=== PATIENT | male | born 2000 | race Caucasian/White ===

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

== ENCOUNTER 2021-04-27 10:18 | Emergency (ER) | payer BC, SELFPAY ==
[2021-04-27 10:41] VITALS: BP 151/81; PULSE 106; RESP 20; TEMP 37.2; O2SAT 100
--- NOTE | 2021-04-27 10:49 | ED.GENADULT ---
HPI - General Adult General Chief complaint: Urogenital-Male Stated complaint: treatment for gonarrhea Source: patient Mode of arrival: ambulatory History of Present Illness HPI narrative: Cat is a 21M with a PMH of gonorrhea and chlamydia that presented to the ED requesting treatment for gonorrhea. He tested positive on 10/25/20 and reports he just slept with the same partner that did not get treatment. He now has purulent discharge and dysuria for 3 days. No fevers, chills, N/V, CP or SOB. He refuses testing at this time. Related Data Allergies Allergy/AdvReac Type Severity Reaction Status Date / Time Penicillins Allergy Unknown Verified 10/25/20 13:06 Review of Systems Constitutional: Constitutional: Reports no additional constitutional complaints Eyes: Eyes: Reports no additional eye complaints ENT: Reports system reviewed and no additional complaints, except as documented Cardiovascular: Cardiovascular: Reports no additional cardiovascular complaints Respiratory: Respiratory: Reports no additional respiratory complaints Gastrointestinal: Gastrointestinal: Reports no additional gastrointestinal complaints Genitourinary: Genitourinary: Reports no additional male genitourinary complaints Musculoskeletal: Musculoskeletal: Reports no additional musculoskeletal complaints Integumentary/Breasts: Skin/Breast: Reports system reviewed and no additional complaints, except as docu Neurologic: Reports system reviewed and no additional complaints, except as documented Psychiatric: Psychiatric: Reports no additional psychiatric complaints Endocrine: Endocrine: Reports no additional endocrine complaints Hematologic/Lymphatic: Hematologic/Lymphatic: Reports no additional hematologic/lymphatic complaints Allergic/Immunologic: Allergic/Immunologic: Reports no additional allergic/immunologic complaints [facility] Social History Social History Gender identity (if verbalized by the patient): Male Exam Const: General: no acute distress and alert Orientation/consciousness: patient oriented x3 Limitations: No altered mental status HENMT: Head: normal to inspection Mouth: Yes Normal oral and palatal mucosa present Eyes: Conjunctivae: conjunctivae normal Pupils: Equal, round and reactive pupils present Neck: Neck: normal visual inspection Chest: Chest palpation & inspection: normal inspection of the chest Resp: Effort & Inspection: normal respiratory effort, not labored and not tachypneic Cardio: Rate: regular rate Skin: General skin exam: normal color Rashes: no rashes Neuro: General: patient oriented x3 and moves all extremities Extrem: General: normal to inspection Psych: Mental Status: mental status grossly normal Course Course Emergency Course: Declined testing but requested treatment for presumed infection. Given history and previous infection will treat for gonorrhea, chlamydia and trich. Vital Signs Vital signs: Vital Signs Temperature 98.9 F 04/27/21 10:41 Pulse Rate 106 H 04/27/21 10:41 Respiratory Rate 20 04/27/21 10:41 Blood Pressure 151/81 H 04/27/21 10:41 Pulse Oximetry 100 04/27/21 10:41 Temperature 98.9 F 04/27/21 10:41 Pulse Rate 106 H 04/27/21 10:41 Respiratory Rate 20 04/27/21 10:41 Blood Pressure 151/81 H 04/27/21 10:41 Pulse Oximetry 100 04/27/21 10:41 Medical Decision Making Vital Signs Vital Signs: Vital Signs Temperature 98.9 F 04/27/21 10:41 Pulse Rate 106 H 04/27/21 10:41 Respiratory Rate 20 04/27/21 10:41 Blood Pressure 151/81 H 04/27/21 10:41 Pulse Oximetry 100 04/27/21 10:41 Temperature 98.9 F 04/27/21 10:41 Pulse Rate 106 H 04/27/21 10:41 Respiratory Rate 20 04/27/21 10:41 Blood Pressure 151/81 H 04/27/21 10:41 Pulse Oximetry 100 04/27/21 10:41 Discharge Plan Discharge Clinical Impression: STI (sexually transmitted infection) Cristobal
[2021-04-27] MEDS: DOXYCYCLINE HYCLATE 100 MG TABLET PO (11:04)
[2021-04-27] MEDS: metroNIDAZOLE 250 MG TABLET 500 MG PO (11:04)
[2021-04-27] MEDS: ONDANSETRON HCL ODT 4 MG TABLET PO (11:05)
[2021-04-27] MEDS: LIDOCAINE HCL 1% LOCAL INJ 20 ML VIAL (11:05)
[2021-04-27 11:17] VITALS: PULSE 98; RESP 20; TEMP 37; O2SAT 99
== END 2021-04-27 11:19 | disposition home or self-care (01) ==
PROVIDERS: Emergency Provider Family Medicine
DX: A64 Unspecified sexually transmitted disease (principal)
CPT/HCPCS: 96372; 99283; A9270; J0696

== ENCOUNTER 2021-06-05 14:51 | Outpatient (CLI) | payer BC, SELFPAY ==
[2021-06-05 15:08] LABS: Hematocrit 42.3 % (40.0-54.0); Hemoglobin 13.8 g/dL (14.0-18.0); Mean Corpuscular HGB Conc 32.6 g/dL (32.0-36.0); Mean Corpuscular Hemoglobin 29.2 pg (27.0-31.0); Mean Corpuscular Volume 89.4 fL (78.0-102.0); Mean Platelet Volume 10.4 fl (8.7-11.0); Platelet Count Result 212 K/mm3 (150-420); Red Blood Count 4.73 M/mm3 (4.70-6.10); Red Cell Distribution Width 12.3 % (11.6-14.4); White Blood Count 8.6 K/mm3 (4.8-10.8)
[2021-06-05 15:43] LABS: Add Urine Microscopic? YES; Appearance Urine Clear (Clear); Bilirubin Urine Negative (Negative); Blood Urine Negative (Negative); Color Urine Yellow (Yellow); Glucose Urine UA Negative (Negative); Ketones Urine Negative (Negative); Leukocyte Esterase Ur Negative (Negative); Nitrate Urine Negative (Negative); Protein Urine Trace (Negative); Specific Grav Ur 1.015 (1.010-1.020); Urobilinogen Urine 0.2 mg/dL (0.2-1.0); pH Urine 7.5 (5.0-8.0)
[2021-06-05 15:48] LABS: Bacteria Urine Trace /hpf; RBC Urine 0-2 /hpf (0-2); Squamous Epithelial Cell Urine Rare /hpf (Few); WBC Urine 0-3 /hpf (0-3)
[2021-06-05 15:52] LABS: Alanine Aminotransferase 23 U/L (16-63); Albumin Level 4.2 g/dL (3.4-5.0); Alkaline Phosphatase 92 U/L (46-116); Anion Gap 10 mmol/L (8-16); Aspartate Amino Transferase 14 U/L (15-37); Bilirubin,Total 0.4 mg/dL (0.00-1.00); Blood Urea Nitrogen 14 mg/dL (7-18); Calcium 9.2 mg/dL (8.5-10.1); Carbon Dioxide 28 mmol/L (21-32); Chloride 103 mmol/L (98-108); Estimated Glomerular Filt Rate > 60; Glucose 79 mg/dL (70-99); Osmolality Calculated 291 mOsm/kg (285-295); Potassium 4.2 mmol/L (3.5-5.1); Sodium 141 mmol/L (136-145); Total Protein 7.7 g/dL (6.4-8.2)
== END 2021-06-05 14:52 | disposition home or self-care (01) ==
LOC: CHSLAB 14:54
PROVIDERS: PCP Family Medicine; Visit Provider Family Medicine
DX: Z00.00 Encounter for general adult medical examination without abnormal findings (principal)
CPT/HCPCS: 36415; 80053; 81001; 85027; 87491; 87591

== ENCOUNTER 2022-01-07 14:13 | Emergency (ER) | payer BC, SELFPAY ==
[2022-01-07] VITALS (8 sets, daily range): BP systolic 116–131; BP diastolic 59–76; PULSE 61–104; RESP 14–16; TEMP 36.2–36.8; O2SAT 98–100
--- NOTE | ~2022-01-07 | XR_ITS ---
EXAMINATION: XR chest 1V portable DATE: 01/07/2022 15:07 INDICATION: Shortness of breath TECHNIQUE: frontal view of the chest was obtained. COMPARISON: Chest radiograph dated 02/12/2017 FINDINGS: The lungs remain clear with no focal airspace opacities, pulmonary edema, pleural effusion or pneumot horax. The cardiomediastinal silhouette is normal. Visualized bones and soft tissues are unremarkable . IMPRESSION: 1. No acute cardiopulmonary disease. Reviewed, dictated and finalized at location B.
--- NOTE | 2022-01-07 14:48 | ECG_ITS ---
Measurements Intervals [place] Rate: 97 P: 60 LA: 139 QRS: 60 QRSD: 87 T: 3 QT: 348 QTc: 444 Interpretive Statements SINUS RHYTHM EARLY PRECORDIAL R/S TRANSITION BASELINE ARTIFACT- I, II, AVR, AVF, V6 BORDERLINE ECG NO PREVIOUS ECG AVAILABLE FOR COMPARISON Electronically Signed On 01-08-2022 6:44:47 CDT by Moustapha Ortiz D.O.
[2022-01-07 15:14] LABS: Base Excess ABG 0.7 mmol/L (0-2); HCO3 ABG 26.2 mmol/L (23-29); Oxygen Content ABG 16.9 %vol (16.0-22.0); Oxygen Saturation ABG 96.4 % (95-97); Oxyhemoglobin 95.1 % (94-100); PCO2 ABG 45.8 mmHg (35-45); PO2 ABG 92.6 mmHg (80-90); Total Hemoglobin 12.6 g/dL (12.0-18.0); pH ABG 7.38 (7.35-7.45)
[2022-01-07] MEDS: IPRATROPIUM 0.5 MG/ALBUTEROL SULFATE 2.5 MG AMPUL.NEB 3 ML INHALATION (15:14)
[2022-01-07 15:15] LABS: Device ROOM AIR; Modified Allen's Test Pass; Site Drawn RIGHT RADIAL
[2022-01-07 15:16] LABS: Basophils Absolute Auto 0.03 K/mm3 (0.00-0.10); Basophils Percent Auto 0.4 % (0.0-1.0); Eosinophils Absolute Auto 0.05 K/mm3 (0.02-0.50); Eosinophils Percent Auto 0.6 % (1.0-6.0); Hematocrit 35.5 % (40.0-54.0); Hemoglobin 11.8 g/dL (14.0-18.0); Immature Granulocyte Absolute 0.02 K/mm3 (0.00-0.00); Immature Granulocyte Percent A 0.2 % (0.0-0.0); Lymphocytes Absolute Auto 1.91 K/mm3 (1.10-4.50); Lymphocytes Percent Auto 23.4 % (18.0-42.0); Mean Corpuscular HGB Conc 33.2 g/dL (32.0-36.0); Mean Corpuscular Hemoglobin 28.8 pg (27.0-31.0); Mean Corpuscular Volume 86.6 fL (78.0-102.0); Mean Platelet Volume 10.9 fl (8.7-11.0); Monocytes Absolute Auto 0.88 K/mm3 (0.10-0.90); Monocytes Percent Auto 10.8 % (2.0-11.0); Neutrophils Absolute Auto 5.3 K/mm3 (1.7-7.2); Neutrophils Percent Auto 64.6 % (50.0-70.0); Platelet Count Result 185 K/mm3 (150-420); Red Cell Distribution Width 11.8 % (11.6-14.4); White Blood Count 8.2 K/mm3 (4.8-10.8)
[2022-01-07 15:31] LABS: Alanine Aminotransferase 27 U/L (16-63); Albumin Level 3.6 g/dL (3.4-5.0); Alkaline Phosphatase 87 U/L (46-116); Anion Gap 6 mmol/L (8-16); Aspartate Amino Transferase 26 U/L (15-37); Bilirubin,Total 0.3 mg/dL (0.00-1.00); Blood Urea Nitrogen 17 mg/dL (7-18); Calcium 8.8 mg/dL (8.5-10.1); Carbon Dioxide 29 mmol/L (21-32); Chloride 106 mmol/L (98-108); Estimated CRCL calculation 110 ml/min; Estimated Glomerular Filt Rate > 60; Glucose 147 mg/dL (70-99); Osmolality Calculated 296 mOsm/kg (285-295); Potassium 3.6 mmol/L (3.5-5.1); Sodium 141 mmol/L (136-145)
[2022-01-07 15:37] LABS: Troponin I < 4.0 ng/L (0.00-60.4)
[2022-01-07] MEDS: ASPIRIN 81 MG CHEWABLE TABLET 324 MG PO (15:37)
[2022-01-07] MEDS: ACETAMINOPHEN 325 MG TABLET 650 MG PO (15:37)
[2022-01-07] MEDS: methylPREDNISolone SOD SUCC 125 MG VIAL IV PUSH (15:41)
[2022-01-07] MEDS: ONDANSETRON INJ 4 MG/2 ML VIAL IV PUSH (15:41)
--- NOTE | 2022-01-07 16:50 | ED.CHESTPAIN ---
HPI - Chest Pain General Chief Complaint: Chest Pain Stated Complaint: LIGHT HEADED /HEAVY CHEST/hyperventilating Time Seen by Provider: 01/07/22 14:16 Source: patient and RN notes reviewed Mode of arrival: ambulatory Limitations: no limitations History of Present Illness complaint: chest heaviness Onset (ago): hour(s) (2) Timing of current episode: constant Prior episodes: No Onset: during exertion Pain location: substernal Pain radiation: none Severity: mild Pain scale (0-10): 2 Quality: heaviness Relieving factors: nothing Exacerbating factors: nothing Treatment prior to arrival: none Risk Factors Coronary artery disease risk factors: smoking history Related Data Allergies Allergy/AdvReac Type Severity Reaction Status Date / Time Penicillins Allergy Unknown Verified 01/07/22 14:34 Review of Systems Review of Systems: All systems reviewed & are unremarkable except as noted in HPI and below Constitutional: Constitutional: Reports no additional constitutional complaints Eyes: Eyes: Reports no additional eye complaints ENT: Reports system reviewed and no additional complaints, except as documented Cardiovascular: Cardiovascular: Reports no additional cardiovascular complaints Respiratory: Respiratory: Reports no additional respiratory complaints and Reports wheezing Gastrointestinal: Gastrointestinal: Reports no additional gastrointestinal complaints Musculoskeletal: Musculoskeletal: Reports no additional musculoskeletal complaints Integumentary/Breasts: Skin/Breast: Reports system reviewed and no additional complaints, except as docu Neurologic: Reports system reviewed and no additional complaints, except as documented Psychiatric: Psychiatric: Reports no additional psychiatric complaints Endocrine: Endocrine: Reports no additional endocrine complaints Hematologic/Lymphatic: Hematologic/Lymphatic: Reports no additional hematologic/lymphatic complaints Allergic/Immunologic: Allergic/Immunologic: Reports no additional allergic/immunologic complaints PMFSH Past Medical History Medical History No active medical problems Wheezing Surgical History Surgical History No history of previous surgery Social History Social History Smoking packs per day: 1 Smoking cigarettes per day: 20.0 Years smoked: 5 Smoking pack-years: 5.00 Smoking status: Current every day smoker Tobacco type: cigarettes Gender identity (if verbalized by the patient): Male Exam Const: General: healthy appearing, no acute distress and well nourished Nutritional Appearance: well nourished Orientation/consciousness: patient oriented x3 Limitations: no limitations HENMT: Head: normal to inspection Ears: external ears normal, TM's normal bilaterally and EAC's normal Face/Nose/Sinus: Normal external nose present, Normal nares present, normal facial exam and sinuses nontender Face and sinus: normal facial exam and sinuses nontender Mouth: Yes Normal oral and palatal mucosa present and Yes moist mucous membranes Teeth and gingiva: dentition normal Throat: posterior oropharynx normal Eyes: Conjunctivae: conjunctivae normal Pupils: Equal, round and reactive pupils present EOM: EOMs intact bilaterally Neck: Neck: normal visual inspection, no lymphadenopathy and no meningeal signs Chest: Chest palpation & inspection: normal inspection of the chest Resp: Effort & Inspection: normal respiratory effort Auscultation: rhonchi and wheezes Cardio: Rate: regular rate Rhythm: regular rhythm GI: GI Palp: Yes Soft to palpation and No Tenderness to palpation present (GI) Auscultation: normal bowel sounds : General: Yes bladder normal to palpation and Yes no CVA tenderness Back/Spine/Pelvis: Back: no CVA tenderness Skin: General skin exam: normal color
== END 2022-01-07 17:01 | disposition home or self-care (01) ==
PROVIDERS: Emergency Provider Emergency Medicine; PCP Family Medicine
DX: M94.0 Chondrocostal junction syndrome [Tietze] (principal); J44.9 Chronic obstructive pulmonary disease, unspecified
CPT/HCPCS: 36415; 36600; 71045; 80053; 82805; 84484; 85025; 93005; 94640; 96374; 96375; 99284; A9270; J2405; J2930

== ENCOUNTER 2022-10-20 12:18 | Emergency (ER) | payer BC, SELFPAY ==
[2022-10-20 12:18] VITALS: BP 127/74; PULSE 82; RESP 16; TEMP 36.4; O2SAT 98
--- NOTE | 2022-10-20 12:30 | ED.GENADULT ---
HPI - General Adult General Chief complaint: Urogenital-Male Stated complaint: STD check Time Seen by Provider: 10/20/22 12:30 Source: patient Mode of arrival: ambulatory Limitations: no limitations History of Present Illness HPI narrative: Patient was sexually transmitted diseases check for as his girlfriend that he had sex with 2 weeks ago ledge likely had gonorrhea. He has had a history of gonorrhea in the distant past but has no symptoms whatsoever now. He is eating drinking stooling and voiding fine no nausea vomiting diarrhea rash or itching lumps or bumps or swelling or discharge or pain anywhere dizziness or lightheadedness cough sore throat runny nose or any other complaints. Related Data Allergies Allergy/AdvReac Type Severity Reaction Status Date / Time Penicillins Allergy Unknown Verified 06/19/22 10:18 Review of Systems Review of Systems: All systems reviewed & are unremarkable except as noted in HPI and below PMFSH Past Medical History Medical History No active medical problems Wheezing Surgical History Surgical History No history of previous surgery Social History Social History Smoking packs per day: 1 Smoking cigarettes per day: 20.0 Years smoked: 5 Smoking pack-years: 5.00 Smoking status: Current every day smoker Tobacco type: cigarettes Gender identity (if verbalized by the patient): Male Exam Const: Other: White male no apparent distress oropharynx is clear neck is supple no lymphadenopathy lungs are clear heart is regular rate rhythm without murmur murmurs gallops or rubs. Abdomen is soft and nontender male genitalia is normal with normal penis and testes. Refused inspection of his rectum. Neurologic is alert and oriented cooperative moves all extremities well no apparent distress Medical Decision Making [facility] Narrative Medical decision making narrative: patient is placed in room 3 history and physical was performed. Independent Historian: ? patient Differential Dx includes but not limited to: gonorrhea chlamydia HIV syphilis Medications were Reviewed:? none ? Medications treatments given: a Zithromax 1 g p.o. Independently Interpreted by me:? External Source Review:?? Treated for gonorrhea in 2022 Medical conditions/social Situation Impacting Patients Care:?? history of GC in the past Shared decision Making:? evaluation was discussed all questions were asked and answered patient agreed with plan. Discussed with ? Clinical impression:? ? Screening medical exam for STDs ? Patient disposition: ? discharge home ? Condition at discharge: stable Discharge Plan Discharge Clinical Impression: Encounter for medical screening examination Patient Disposition: Home, Self-Care Condition: Stable Instructions: Sexually Transmitted Diseases (ED) Additional Instructions: patient to call back to the emergency department for the results of his test and/or lab. Check for gonorrhea chlamydia syphilis and HIV testing done. Return if you get worse or develops any new symptoms. Follow up with her primary care provider. Follow-up/Referrals: Althea Gaytan NP [Primary Care Provider] - Time of Disposition: 13:49
[2022-10-20] MEDS: AZITHROMYCIN 250 MG TABLET 1000 MG PO (13:12)
[2022-10-20 13:14] VITALS: BP 120/74; PULSE 74; RESP 18; TEMP 36.9; O2SAT 97
[2022-10-20 14:04] LABS: HIV 1 P24 AG Negative (Negative); HIV 1/2 AB Negative (Negative)
--- NOTE | 2022-10-23 13:20 | PC.NURSE ---
FINAL C TRACHOMATIS RNA RESULTS: DETECTED FINAL N GONORRHOEAE RNA RESULTS: NOT DETECTED. NO FURTHER TX NEEDED. ATTEMPTED TO NOTIFY PT, MESSAGE LEFT.
[2022-10-23 14:50] LABS: RPR Screen Non-Reactive (Non-Reactive)
== END 2022-10-20 14:06 | disposition home or self-care (01) ==
PROVIDERS: Emergency Provider Emergency Medicine; PCP Nurse Practitioner Family
DX: Z11.3 Encounter for screening for infections with a predominantly sexual mode of transmission (principal); F17.210 Nicotine dependence, cigarettes, uncomplicated
CPT/HCPCS: 36415; 86592; 87491; 87591; 87806; 99283; A9270

== ENCOUNTER 2024-02-28 13:11 | Emergency (ER) | payer OTHER, SELFPAY ==
--- NOTE | ~2024-02-28 | XR_ITS ---
EXAMINATION: XR finger 1st LT min 2V DATE: 02/28/2024 13:36 INDICATION: Left thumb injury. TECHNIQUE: 3 views of left thumb were obtained. COMPARISON: None. FINDINGS: Bone alignment is normal. No fracture. Joint spaces are normal. There is soft tissue swelli ng of the thumb. IMPRESSION: 1. No fracture. Reviewed, dictated and finalized at location A. L OPERATOR GIN IMPRESSION: 1. No fracture.
[2024-02-28 13:13] VITALS: BP 126/75; PULSE 126; RESP 18; TEMP 37.1; O2SAT 100
[2024-02-28 13:59] LABS: HIV 1 P24 AG Negative (Negative); HIV 1/2 AB Negative (Negative)
--- NOTE | 2024-02-28 14:00 | ED_ITS ---
HPI - Extremity Injury (Upper) General Chief Complaint: Extremity Injury, Upper Stated Complaint: left hand thumb pain Time Seen by Provider: 02/28/24 13:24 Source: patient and family Mode of arrival: ambulatory Limitations: no limitations History of Present Illness HPI narrative: patient is a 23-year-old with some left thumb injury approximately 2 to 3 days ago and has a abscess on the paronychia area around his left thumb that is painful after he had smashed. Currently no fever chills. complaint: injury to: left Onset (ago): day(s) Other Extremity Injury: Left: fingers ( Thumb injury) Other injuries: none Handedness: right Place: home Severity: mild Related Data Allergies Allergy/AdvReac Type Severity Reaction Status Date / Time Penicillins Allergy Unknown Verified 02/18/23 07:36 Review of Systems Review of Systems: All systems reviewed & are unremarkable except as noted in HPI and below PMFSH Past Medical History Medical History Wheezing No active medical problems Surgical History Surgical History No history of previous surgery Social History Social History Smoking packs per day: 1 Smoking cigarettes per day: 20.0 Years smoked: 5 Smoking pack-years: 5.00 Smoking status: Current every day smoker Tobacco type: cigarettes Gender identity (if verbalized by the patient): Male Exam Const: General: healthy appearing Nutritional Appearance: well nourished Orientation/consciousness: patient oriented x3 Limitations: no limitations Eyes: Conjunctivae: conjunctivae normal Pupils: Equal, round and reactive pupils present Resp: Effort & Inspection: normal respiratory effort Auscultation: clear to auscultation bilaterally Cardio: Rate: regular rate Rhythm: regular rhythm Skin: General skin exam: normal color Rashes: no rashes Wounds: wounds noted Neuro: General: patient oriented x3 and moves all extremities Course Course Emergency Course: Used Betadine to clean the area surrounding the paronychial area of his left thumb 11 blade scalp was used to all Maverick the abscess was drained cultured patient started on antibiotics. X-ray shows no acute fractures, patient also wanted STD check and HIV RPR and G and C were performed. Vital Signs Vital signs: Vital Signs Temperature 37.1 C 02/28/24 13:13 Pulse Rate 126 H 02/28/24 13:13 Respiratory Rate 18 02/28/24 13:13 Blood Pressure 126/75 02/28/24 13:13 Pulse Oximetry 100 02/28/24 13:13 Oxygen Delivery Room Air 02/28/24 13:13 Temperature 37.1 C 02/28/24 13:13 Pulse Rate 126 H 02/28/24 13:13 Respiratory Rate 18 02/28/24 13:13 Blood Pressure 126/75 02/28/24 13:13 Pulse Oximetry 100 02/28/24 13:13 Oxygen Delivery Room Air 02/28/24 13:13 Procedures Abscess I/D upper extremity: Date of Incision: 02/28/24 Time of Incision: 14:07 Side (if applicable): left Local Anesthetic: none Technique: incised with #11 blade Amount of fluid expressed (mL): 5 Packing used?: none I&D Results: Pus Complications: pain MDM - Extremity Injury (Upper) Lab Data Labs: Lab Results 02/28/24 02/28/24 Range/Units 13:30 13:37 CSF HIV-1 p24 Ag Scrn Negative (Negative) RPR Pending RPR Titer Add Testing Pending C. trachomatis (PCR) Pending HIV 1&2 Antibody Rapid Negative (Negative) N. gonorrhoeae (PCR) Pending Critical Care Time Critical Care Time Critical Care Time: No Discharge Plan Discharge Clinical Impression: Abscess, Possible exposure to STD Patient Disposition: Home, Self-Care Condition: Stable Instructions: Antibiotic Form, Sexually Transmitted Diseases (ED), Safe Sex Practices (ED), Abscess (ED) Additional Instructions: advised patient to take medication as prescribed and follow up with primary if symptoms persist or worsen. Patient Language: Turkmen Prescriptions: New sulfamethoxazole-trimethoprim [Bactrim DS] 800-160 mg tablet 1 tablet PO Q12H Qty: 20 0RF mupirocin 2 % ointment 1 applic topical TID 7 Days Qty: 15 0RF Follow-up/Referrals: UNKNOWN,DOCTOR [Primary Care Provider] - Time of Disposition: 14:10
[2024-02-28 14:22] VITALS: BP 133/76; PULSE 96; RESP 17; TEMP 36.9; O2SAT 98
--- NOTE | 2024-03-01 13:59 | PC.NURSE ---
ANAEROBIC CULTURE PRELIMINARY: GRAM POSITIVE COCCI IN CLUSTERS, TO AWAIT SENSITIVITIES
[2024-03-02 08:40] LABS: Chlamydia trachomatis DETECTED (NOT DETECTE); Neisseria gonorrhoeae PCR NOT DETECTED (NOT DETECTE)
[2024-03-02 10:09] LABS: RPR Screen NON-REACTIVE (NON-REACTIVE)
--- NOTE | 2024-03-02 12:12 | PC.NURSE ---
PRELIMINARY ANAEROBIC CULTURE RESULTS: GRAM POSITIVE COCCI IN CLUSTERS. NO ANAEROBES ISOLATED TO DATE, COTNINUING INCUBATION. PRELIMINARY AEROBIC CULTURE RESULTS: ISOLATE 1: HEAVY GROWTH OF STAPHYLOCOCCUS AUREUS. PER DR BARBOUR, TO AWAIT C&S.
--- NOTE | 2024-03-03 08:03 | PC.NURSE ---
pt std panel reviewed. chlamydia trachomatis detected. erp reviewed report. orders received to change abx. pt called, message left on phone to return call ace
--- NOTE | 2024-03-03 08:41 | PC.NURSE ---
final wound culture report reviewed. heavy growth of MRSA isolated. sensitive to Bactrim ds. pt prescribed bactrim ds at discharge. no change in plan of care for the wound infection.
--- NOTE | 2024-03-03 09:35 | PC.NURSE ---
pt returned call, discussed test positive for chlamydia and need for 2nd abx. erp reviewed report and has ordered doxycycline 100mg bid for 7 days. this prescription called in to pt's pharmacy. pt instructed to get rx filled and take as directed.
--- OUTSIDE RECORDS SUMMARY | 2024-03-06 19:49 | XMS_ITS ---
Author Organization [facility] Address [address] [place] [address] Care Team Providers Care Manager Garage Name Role Phone Vidal Donaldson Primary Care Provider Allergies Allergen (clinical drug ingredient) Drug/Non Drug Allergy documented on EMR Reaction Allergy Type Onset Date Status amoxicillin Amoxicillin hives Drug Allergy Act masoud Penicillin hives Drug Allergy Active Results Component Value Reference Range Notes X ray : Dental, PA - First Reviewed date:02/06/2023 08:23:56 AM Interpretation: Performing Lab: Notes/Report: X ray : Dental, PA - Additio nal(s) Reviewed date:02/06/2023 08:23:46 AM Interpretation: Performing Lab: Notes/Report: REASON FOR VISIT Dental Problem Focus, LL and LR no pain at the moment Medications Medication SIG (Take, Route, Frequency, Duration) Notes Start Date End Date Status Melatonin Active Suboxone Active Wellbutrin Active Prazosin HCl Active Flexeril Active Ibuprofen 800 MG 1 tablet with food o r milk as needed Orally every 8 hrs for 7 days 02/06/2023 02/13/2023 Active Clindamycin HCl 300 MG 1 capsule Orally every 6 hrs for 7 days 02/06/2023 02/13/2023 Active SEROquel Active Social History Tobacco Use: Social History Observation Description Date Details (start date - stop date) Current Smoker NA - NA Tobacco Use/Smoking Question Answer Notes Are you a current smoker Vital Signs Blood pressure systolic 130 mm Hg 02/07/20 23 Blood pressure diastolic 80 mm Hg 023 Encounters Encounter Location Date Provider Diagnosis [address] [place] [address] [place] [address] 02/06/2023 Vidal Donaldson Dental examination Z01.20 Assessments Encounter Date Diagnosis (ICD Code) Assessment Notes Treatment Notes Treatment Clinical Notes Section Notes 02/06/2023 Dental examination (ICD-10 - Z01.20) Plan Of Treatment Medication Medication Name Sig Start Date Stop Date Notes Ibuprofen 800 MG 1 tablet with food o r milk as needed Orally every 8 hrs for 7 days 02/06/2023 02/13/2023 Clindamycin HCl 300 MG 1 capsule Orally every 6 hrs for 7 days 02/06/2023 02/13/2023 Next Appt Details Follow Up: 1 Week, Reason: E xt #19 Progress Notes * Kevin DUOB:2000 ([age] yo M)Acc No.[id number]:02/06/2023 Dental Problem Focus Patient:?Cat Du Provider:?Vidal Donaldson DDS :2000???Age:22 Y???Sex:Male Chao e:02/06/2023 Address:[address] [place], [place] [id number] Check In:07:35 AM CSTCheck O ut:09:09 AM SHANK SCOURER Subjective: * Chief Complaints: * ???1. Dental Problem Focus. 2. LL and LR no pain at the moment. * Medical History:?Substance U se, meth Clean: 01/06/23, High Blood Pressure, Low blood pressure, Headaches\migraines, Sinus problems, Past shingles, PTSD. * Dental History :?1.?Relationship with patient ?Who is the patient accompanied by? self??. * Surgical History:?Denies Pas t Surgical History. * Hospitalization/Major Diagno stic Procedure:?Denies Past Hospitalization. * Social History:?Tobacco Use:?Tobacco Use/Smoking?Are you a?current smoker * Medications:?Taking Prazosin HCl , Taking Flexeril , Taking Suboxone , Taking Wellbutrin , Taking Melatonin , Taking SEROquel , Medication List reviewed and reconciled with the patient * Allergies:?Penicillin: hives - Allergy, Amoxicillin: hives - Allergy. Objective: * Vitals: BP sittin/80?? 02/06/2023 08:07:25 AM SHANK SCOURER?? * Dental Examination/Plan :? Tooth / Surface Status Description Provider 32 C INTRAORL-PERIAPICAL 1 FILM [id number] 02/06/2023 19 C INTRAORL-PERIAPICAL EA ADD FILM HZ 02/06/2023 Full Mouth C LTD ORAL EVALUATION - PROBLEM FOCUS 02/06/2023 19 TP EXTRAC ERUPTED TOOTH/EXPOSED ROOT 02/06/2023 * Examination: ???Dental: ?Dentist completing the exam?Dr. Donaldson.?Chief Complaint/HPI?Tooth pain , Lower quad , Right , Left.?Extraoral Examination?WNL.?Intraoral Examination?#19 has root tips left, #32 have large caries, non restorable.?Radiographic Examination?decay to pulp , decay to bone level , widened PDL , PARL.?Behavior?Frankl 4.?Treatment plan?Discussed treatment plan with patient , Discussed treatment options with patient , Patient elects for extraction , Patient verbally accepts treatment plan.? Assessment: * Assessment: 1.?Dental examination - Z01. 20 (Primary)? Plan: * Treatment: ?Imaging: X ray : Dental, PA - First* * Procedure Codes:?D0140 LTD O RAL EVALUATION - PROBLEM FOCUS, TthNo: FM, Srfc: , D0220 INTRAORL-PERIAPICAL 1 FILM 08466, TthNo: 32, Srfc: , D0230 INTRAORL-PERIAPICAL EA ADD FILM, TthNo: 19, Srfc: * Follow Up:?1 Week (Reason: E xt #19) * * K SCOURER Sign off status: Completed Visit Status:?CHK (Check Out ) true * Provider:?Vidal Donaldson DDS Date:? 3 Generated for Yan gaviria/Hayden/Janellitting on:?03/06/2024 07:49 PM SHANK SCOURER History and Physical Notes * Examination Category Sub-Category Detail Notes Category Not es Dental Extraoral Examination WNL Intraoral Examination #19 has root tips left, #32 have large caries, non restorable Radiographic Examination decay to pulp , decay to bone level , widened PDL , PARL Chief Complaint/HPI Tooth pain , Lower q uad , Right , Left Dentist completing the exam Dr. Mendoza Schuler 4 Treatment plan Discussed treatment plan with patient , Discussed treatment options with patient , Patient elects for extraction , Patient verbally accepts treatment plan
--- OUTSIDE RECORDS SUMMARY | 2024-03-06 19:49 | XMS_ITS | Patient Health Record ---
Author Organization [facility] Address [address] [place] [address] Care Team Providers Care Benefits Analyst Name Role Phone MendozaVidal gustasfon Primary Care Provider [phone] Allergies Allergen (clinical drug ingredient) Drug/Non Drug Allergy documented on EMR Reaction Allergy Type Onset Date Status amoxicillin Amoxicillin hives Drug Allergy Act masoud Penicillin hives Drug Allergy Active Reason For Referral No Information Medications Medication SIG (Take, Route, Frequency, Duration) Notes Start Date End Date Status Melatonin Active Suboxone Active Wellbutrin Active Prazosin HCl Active Flexeril Active SEROquel Active Social History Tobacco Use: Social History Observation Description Date Details (start date - stop date) Current Smoker NA - NA Tobacco Use/Smoking Question Answer Notes Are you a current smoker Plan Of Treatment No Information Insurance Providers Payer Name Payer Address Payer Phone Subscriber Number Group Number Insured Name Patient Relationship to Insured Coverage Start Date Coverage End Date [facility] [address] [place] [address] [id number] Cat Du Self - patient is the insured [facility] [address] [place] [address] [id number] Cat Du Self - patient is the insured Medical (General) History Medical History History ICD Code Substance Use, meth Clean: 01/06/23 High Blood Pressure Low blood pressure Headaches\migraines Sinus problems Past shingles PTSD
== END 2024-02-28 14:22 | disposition home or self-care (01) ==
PROVIDERS: Emergency Provider Emergency Medicine
DX: L02.512 Cutaneous abscess of left hand (principal); F17.210 Nicotine dependence, cigarettes, uncomplicated; Z11.4 Encounter for screening for human immunodeficiency virus [HIV]; Z11.3 Encounter for screening for infections with a predominantly sexual mode of transmission
CPT/HCPCS: 10060; 36415; 73140; 86592; 87070; 87075; 87181; 87205; 87491; 87591; 87806; 99283

== ENCOUNTER 2024-09-12 16:39 | Emergency (ER) | payer OTHER, SELFPAY ==
--- NOTE | ~2024-09-12 | XR_ITS ---
EXAMINATION: XR chest 1V portable Exam Date/Time: 09/12/2024 17:00 CDT HISTORY: Overdose Comparison: 01/07/2022. RESULT: Lines, tubes, and devices: None. Lungs and pleura: Clear. Cardiomediastinal silhouette: Stable. Other: No acute osseous finding. Ill-defined subdiaphragmatic and left upper quadrant lucency. Multi ple loops of small bowel in the left upper quadrant with apparent wall thickening, one of which is di lated. IMPRESSION: No acute cardiopulmonary process. Possible pneumoperitoneum. Dilated small bowel loops and multiple loops of small bowel with apparent wall thickening. Recommend CT of the abdomen and pelvis with contrast for further evaluation. Results reported telephonically to Dr. Murray by Dr. Franklin at 5:48 PM on 09/12/2024. Reviewed, dictated and finalized at location K. IMPRESSION: No acute cardiopulmonary process. Possible pneumoperitoneum. Dilated small bowel loops and multiple loops of smal l bowel with apparent wall thickening. Recommend CT of the abdomen and pelvis w ith contrast for further evaluation. Results reported telephonically to Dr. Murray by Dr. Franklin at 5:48 PM on 09/12.
--- NOTE | ~2024-09-12 | CT_ITS ---
EXAMINATION: CT abdomen pelvis w con DATE: 09/12/2024 18:31 INDICATION: abnormal cxr of abdomen TECHNIQUE: Computed tomography (CT) of the abdomen and pelvis was performed with 100 mL Omnipaque-350 intravenous contrast. Automated exposure control and iterative reconstruction technique were employe d. The dose-length product was 232.77 mGy-cm. COMPARISON: 11/13/2016. FINDINGS: Exam limited by suboptimal contrast enhancement, paucity of abdominal fat and motion. Lower thorax: Unremarkable Liver: Mild periportal edema, otherwise normal. Biliary/Gallbladder: Gallbladder is normal. No bile duct dilation. Pancreas: No mass or duct dilation. Spleen: Normal. Adrenals:No mass. Kidneys: No suspicious mass, obstructing stone, or hydronephrosis. GI tract: No small or large bowel dilation. Normal appendix. Mesentery/Peritoneum: No ascites, mass, or free air. Retroperitoneum: No mass. Pelvis: Pelvic organs are within normal limits. Soft Tissues: Soft tissues and body wall unremarkable. Bones: No acute osseous finding. Lumbar scoliosis. Stable mild anterior wedge deformity at T11 and T 12, likely physiologic. IMPRESSION: No acute abdominopelvic process detected, within the limitations noted above. Prior radiographic findings likely related to artifact. Reviewed, dictated and finalized at location K.
--- OUTSIDE RECORDS SUMMARY | 2024-09-12 16:42 | XMS_ITS | Patient Health Record ---
Author Organization [facility] Address [address] [place] [address] Care Team Providers Care Director Of Market Intelligence Name Role Phone MendozaVidal gustafson Primary Care Provider Allergies Allergen (clinical drug [...] Insured Coverage Start Date Coverage End Date [facility] [address] [place] [address] [id number] Cat Du Self - patient is the [facility] [address] [place] [address] [id number] Cat Du Self - patient is the insured Medical (General) History Medical History History ICD Code Substance Use, meth Clean: 01/06/23 High Blood Pressure Low blood pressure Headaches\migraines Sinus problems Past shingles PTSD
--- NOTE | 2024-09-12 16:45 | ED_ITS ---
HPI - Overdose General Chief Complaint: Overdose Stated Complaint: overdose Time Seen by Provider: 09/12/24 16:44 Source: patient and EMS Mode of arrival: EMS Limitations: no limitations History of Present Illness HPI Narrative: Patient is a 24-year-old male with fentanyl overdose/ normal intake for his variant prior to arrival. Police and EMS got to the patient and he was breathing on his own. No respiratory assistance required. He did get Narcan 2 mg IV. No complaints. No chest pain or shortness of breath. No nausea vomiting or diarrhea. He uses fentanyl multiple times a day IV. patient was found on the side of the road by a passerby and called EMS. complaint: accidental overdose Onset (ago): day(s) ( One) Intent: other ( accidental; he took his normal variant of fentanyl) How Overdose Was Discovered: called 911 ( Bystander) Context: Intentional Overdose: other ( none) Context: Accidental Overdose: wanted to get high Associated symptoms: other ( none) Treatments Prior to Arrival: narcan ( 2 mg IV) Related Data Allergies Allergy/AdvReac Type Severity Reaction Status Date / Time Penicillins Allergy Unknown Verified 09/12/24 16:48 Review of Systems 2 Review of Systems: All systems reviewed & are unremarkable except as noted in HPI and below Constitutional: Constitutional: Reports no additional constitutional complaints Eyes: Eyes: Reports no additional eye complaints ENT: Reports system reviewed and no additional complaints, except as documented Cardiovascular: Cardiovascular: Reports no additional cardiovascular complaints Respiratory: Respiratory: Reports no additional respiratory complaints Gastrointestinal: Gastrointestinal: Reports no additional gastrointestinal complaints Genitourinary: Genitourinary: Reports no additional male genitourinary complaints Musculoskeletal: Musculoskeletal: Reports no additional musculoskeletal complaints Integumentary/Breasts: Skin/Breast: Reports system reviewed and no additional complaints, except as docu Neurologic: Reports system reviewed and no additional complaints, except as documented Psychiatric: Psychiatric: Reports no additional psychiatric complaints Endocrine: Endocrine: Reports no additional endocrine complaints Hematologic/Lymphatic: Hematologic/Lymphatic: Reports no additional hematologic/lymphatic complaints Allergic/Immunologic: Allergic/Immunologic: Reports no additional allergic/immunologic complaints PMFSH Past Medical History Medical History Wheezing No active medical problems Surgical History Surgical History No history of previous surgery Social History Social History Smoking packs per day: 1 Smoking cigarettes per day: 20.0 Years smoked: 5 Smoking pack-years: 5.00 Smoking status: Current every day smoker Tobacco type: cigarettes Gender identity (if verbalized by the patient): Male Exam 2 Const: General: no acute distress Nutritional Appearance: thin O rientation/consciousness: patient oriented x3 Limitations: no limitations Other: patient is disheveled and malnourished appearing HENMT: Head: normal to inspection Ears: external ears normal F marizol/Nose/Sinus: Normal external nose present Eyes: Conjunctivae: conjunctivae normal Pupils: Equal, round and reactive pupils present EOM: EOMs intact bilaterally Neck: Neck: normal visual inspection Chest: Chest palpation & inspection: normal inspection of the chest Resp: Effort & Inspection: normal respiratory effort and not labored A uscultation: clear to auscultation bilaterally and no crackles Cardio: Rate: regular rate Rhythm: regular rhythm Heart sounds: no murmurs Skin: General skin exam: normal color Rashes: no rashes Wounds: no wounds Neuro: General: patient oriented x3, moves all extremities, no meningeal signs, no focal motor deficits and CN's II-XI intact bilaterally Cranial nerves: Yes Nystagmus not present Speech: normal speech Psych: Mental Status: mental status grossly normal Affect: normal affect Attitude: cooperative Course Vital Signs Vital signs: Vital Signs Temperature 37.8 C H 09/12/24 16:47 Pulse Rate 117 H 09/12/24 16:47 Respiratory Rate 18 09/12/24 16:47 Blood Pressure 137/92 H 09/12/24 16:47 Pulse Oximetry 100 09/12/24 16:47 Oxygen Delivery Room Air 09/12/24 16:47 Temperature 37.8 C H 09/12/24 16:47 Pulse Rate 116 H 09/12/24 18:53 Respiratory Rate 15 09/12/24 18:53 Blood Pressure 111/83 09/12/24 18:53 Pulse Oximetry 99 09/12/24 18:53 Oxygen Delivery Room Air 09/12/24 17:30 MDM - Overdose MDM Narrative Medical decision making narrative: patient is a 24-year-old male with an accidental overdose of fentanyl prior to arrival. We will monitor the patient and check some basic labs. Patient was given Narcan and we will monitor for needs further. Lab Data Attestation: I reviewed the patient's lab results. Lab results narrative: opiates negative from Narcan likely 09/12/24 16:51 09/12/24 16:51 Labs: Lab Results 09/12/24 09/12/24 09/12/24 Range/Units 16:51 16:57 17:55 WBC 12.6 H (4.8-10.8) K/mm3 RBC 4.21 L (4.70-6.10) M/mm3 Hgb 11.1 L (14.0-18.0) g/dL Hct 36.5 L (40.0-54.0) % MCV 86.7 (78.0-102.0) fL MCH 26.4 L (27.0-31.0) pg MCHC 30.4 L (32-36) g/dL RDW 13.1 (11.6-14.4) % Plt Count 230 (150-420) K/mm3 MPV 9.6 (8.7-11.0) fl Immature Gran % (Auto) 0.3 H (0.0-0.0) % Neut % (Auto) 80.4 H (50.0-70.0) % Lymph % (Auto) 13.7 L (18.0-42.0) % Page % (Auto) 5.3 (2.0-11.0) % Eos % (Auto) 0.1 L (1.0-6.0) % Baso % (Auto) 0.2 (0.0-1.0) % Lymph # (Auto) 1.73 (1.10-4.50) K/mm3 Page # (Auto) 0.67 (0.10-0.90) K/mm3 Eos # (Auto) 0.01 L (0.02-0.50) K/mm3 Baso # (Auto) 0.03 (0.00-0.10) K/mm3 Abs Immat Gran (auto) 0.04 H (0.00-0.00) K/mm3 Absolute Neuts (auto) 10.16 H (1.70-7.20) K/mm3 Absolute Nucleated RBC 0.00 (0.00-0.00) K/mm3 Nucleated RBC % 0.0 (0-0.0) % Sodium 141 (137-145) mmol/L Potassium 4.0 (3.4-5.0) mmol/L Chloride 110 H (98-107) mmol/L Carbon Dioxide 25 (22-30) mmol/L Anion Gap 6 (4-12) mmol/L BUN 18 (9-20) mg/dL Creatinine 1.49 H (0.7-1.3) mg/dL Estim Creat Clear Calc 60 ml/min Estimated GFR 58 L (59 - ) Glucose 79 (65-110) mg/dL Calculated Osmolality 292 (285-295) mOsm/kg Calcium 9.1 (8.4-10.2) mg/dL Total Bilirubin 0.6 (0.2-1.3) mg/dL AST 62 H (17-59) U/L ALT 79 H (6-50) U/L Alkaline Phosphatase 95 (38-126) U/L Total Creatine Kinase 184 H (55-170) U/L Troponin I < 0.012 (0.000-0.034) ng/mL Total Protein 7.2 (6.3-8.2) g/dL Albumin 3.8 (3.5-5.1) g/dL Urine Opiates Screen Negative (Negative) Urine Methadone Screen Negative (Negative) Ur Barbiturates Screen Negative (Negative) Ur Phencyclidine Scrn Negative (Negative) Ur Amphetamine Screen (Negative) U Benzodiazepines Scrn Negative (Negative) Urine Cocaine Screen Negative (Negative) U Cannabinoids Screen Negative (Negative) Ethyl Alcohol < 10 (<10) mg/dL Imaging Data Attestation: I personally reviewed and interpreted this imaging study as follows: Radiologist's impression: Chest x-ray shows IMPRESSION: No acute cardiopulmonary process. Possible pneumoperitoneum. Dilated small bowel loops and multiple loops of small bowel with apparent wall thickening. Recommend CT of the abdomen and pelvis with contrast for further evaluation. Results reported telephonically to Dr. Murray by Dr. Franklin at 5:48 PM on 09/12/2024. CT scan of the abdomen and pelvis shows IMPRESSION: No acute abdominopelvic process detected, within the limitations noted above. Prior radiographic findings likely related to artifact. ECG Data EKG #1: Attestation: I personally reviewed and interpreted this ECG as follows: ECG completion date: 09/12/24 ECG completion time: 17:24 EKG Interpretation: tachycardia, sinus rhythm, no ectopy, no ST changes, normal QRS, normal QT and NL axis Discharge Plan Discharge Clinical Impression: BOGDAN (acute kidney injury), Dehydration Opioid overdose Qualifiers: Encounter type: initial encounter Injury intent: accidental or unintentional Q ualified Code(s): T40.2X1A - Poisoning by other opioids, accidental (unintentional), initial encounter Patient Disposition: Home Condition: Improved Instructions: Opioid Use Disorder (ED) Patient Language: Occitan Prescriptions: No Action sulfamethoxazole-trimethoprim [Bactrim DS] 800-160 mg tablet 1 tablet PO Q12H Qty: 20 0RF mupirocin 2 % ointment 1 applic topical TID 7 Days Qty: 15 0RF Follow-up/Referrals: UNKNOWN,DOCTOR [Primary Care Provider] - Time of Disposition: 19:10
[2024-09-12 16:47] VITALS: BP 137/92; PULSE 117; RESP 18; TEMP 37.8; O2SAT 100
[2024-09-12 16:56] LABS: Hematocrit 36.5 % (40.0-54.0); Hemoglobin 11.1 g/dL (14.0-18.0); Immature Granulocyte Percent A 0.3 % (0.0-0.0); Lymphocytes Absolute Auto 1.73 K/mm3 (1.10-4.50); Mean Corpuscular HGB Conc 30.4 g/dL (32-36); Mean Corpuscular Hemoglobin 26.4 pg (27.0-31.0); Mean Corpuscular Volume 86.7 fL (78.0-102.0); Nucleated Red Blood Cells Absolute Auto 0.00 K/mm3 (0.00-0.00); Nucleated Red Blood Cells Perc 0.0 % (0-0.0); Platelet Count Result 230 K/mm3 (150-420); Red Blood Count 4.21 M/mm3 (4.70-6.10); White Blood Count 12.6 K/mm3 (4.8-10.8)
--- NOTE | 2024-09-12 16:56 | ECG_ITS ---
Test Date: 2024-09-12 17:03:45 Measurements Intervals Amigo Rate: 116 P: 63 LA: 135 QRS: 57 QRSD: 89 T: 57 QT: 311 QTc: 434 Interpretive Statements SINUS TACHYCARDIA POSSIBLE RIGHT VENTRICULAR CONDUCTION DELAY [RSR (QR) IN V1/V2] ABNORMAL RHYTHM ECG No previous ECG available for comparison Electronically Signed On 09-13-2024 22:32:03 CDT by Aron Galdamez M.D.
[2024-09-12 17:00] VITALS: BP 140/76; PULSE 118; RESP 11; O2SAT 98
[2024-09-12 17:08] LABS: Alanine Aminotransferase 79 U/L (6-50); Albumin Level 3.8 g/dL (3.5-5.1); Aspartate Amino Transferase 62 U/L (17-59); Blood Urea Nitrogen 18 mg/dL (9-20); Carbon Dioxide 25 mmol/L (22-30); Estimated CRCL calculation 60 ml/min; Estimated Glomerular Filt Rate 58; Total Protein 7.2 g/dL (6.3-8.2)
[2024-09-12 17:13] LABS: Alkaline Phosphatase 95 U/L (38-126); Anion Gap 6 mmol/L (4-12); Bilirubin,Total 0.6 mg/dL (0.2-1.3); Calcium 9.1 mg/dL (8.4-10.2); Chloride 110 mmol/L (98-107); Creatine Kinase 184 U/L (55-170); Glucose 79 mg/dL (65-110); Osmolality Calculated 292 mOsm/kg (285-295); Potassium 4.0 mmol/L (3.4-5.0); Sodium 141 mmol/L (137-145)
[2024-09-12 17:20] LABS: Troponin I < 0.012 ng/mL (0.000-0.034)
[2024-09-12] MEDS: SODIUM CHLORIDE 0.9% IV 1,000 ML 999 ML IV CONT (17:26)
--- NOTE | 2024-09-12 17:26 | PC.NURSE ---
Patient provided food and drink per ERP request.
[2024-09-12 17:30] VITALS: BP 133/84; PULSE 109; RESP 16; O2SAT 97
[2024-09-12 18:00] VITALS: BP 139/88; PULSE 110; RESP 15; O2SAT 100
[2024-09-12 18:53] VITALS: BP 111/83; PULSE 116; RESP 15; O2SAT 99
[2024-09-12 19:00] LABS: Cannabinoid Screen Urine Negative (Negative)
== END 2024-09-12 19:27 | disposition home or self-care (01) ==
PROVIDERS: Emergency Provider Emergency Medicine
DX: N17.9 Acute kidney failure, unspecified (principal); E86.0 Dehydration; T40.2X1A Poisoning by other opioids, accidental (unintentional), initial encounter; F17.210 Nicotine dependence, cigarettes, uncomplicated
CPT/HCPCS: 36415; 71045; 74177; 80053; 80307; 82077; 82550; 84484; 85025; 93005; 96360; 99284; J7030; Q9967

== ENCOUNTER 2024-09-24 18:48 | Emergency (ER) | payer OTHER, SELFPAY ==
--- OUTSIDE RECORDS SUMMARY | 2024-09-24 18:51 | XMS_ITS | Patient Health Record ---
Author Organization [facility] Address [address] [place] [address] Care Team Providers Care Ehs Engineer Name Role Phone MendozaVidal gustafson Primary Care Provider [phone] Allergies Allergen (clinical drug ingredient) Drug/Non Drug [...] Insured Coverage Start Date Coverage End Date [facility] [address] [place] [address] [id number] Cat Du Self - patient is the [facility] [address] [place] [address] [id number] Cat Du Self - patient is the insured Medical (General) History Medical History History ICD Code Substance Use, meth Clean: 01/06/23 High Blood Pressure Low blood pressure Headaches\migraines Sinus problems Past shingles PTSD
[2024-09-24 18:52] VITALS: BP 130/83; PULSE 122; RESP 16; TEMP 36.6; O2SAT 96
--- NOTE | 2024-09-24 18:58 | ED_ITS ---
HPI - Skin/Abscess/Foreign Bdy General Chief complaint: Skin/Abscess/Foreign Body Stated complaint: Abscess Time Seen by Provider: 09/24/24 18:58 Source: patient Mode of arrival: ambulatory Limitations: no limitations History of Present Illness HPI narrative: patient is a 24-year-old male with a lower lip midline red and tender with swollen area for the past few days. Patient said he initially picked at the are a and it got worse. complaint: abscess/boil ( Lower lip midline) Onset (ago): day(s) ( 3) Tetanus up to date: yes Location: face ( lower lip midline) Severity: moderate Severity scale (1-10): 4 Quality: burning and sharp Pain Consistency: constant Relieving factors: none Exacerbating factors: palpation Context: other ( patient has a lower lip midline rash/ swelling over the past 3 days and has gotten worse when he picked at the lesion) Associated symptoms: denies other symptoms Treatments prior to arrival: attempted to drain pus at home Related Data Allergies Allergy/AdvReac Type Severity Reaction Status Date / Time Penicillins Allergy Unknown Verified 09/24/24 18:51 Review of Systems Review of Systems: All systems reviewed & are unremarkable except as noted in HPI and below Constitutional: Constitutional: Reports no additional constitutional complaints Eyes: Eyes: Reports no additional eye complaints ENT: Reports system reviewed and no additional complaints, except as documented Cardiovascular: Cardiovascular: Reports no additional cardiovascular complaints Respiratory: Respiratory: Reports no additional respiratory complaints Gastrointestinal: Gastrointestinal: Reports no additional gastrointestinal complaints Genitourinary: Genitourinary: Reports no additional male genitourinary complaints Musculoskeletal: Musculoskeletal: Reports no additional musculoskeletal complaints Integumentary/Breasts: Skin/Breast: Reports system reviewed and no additional complaints, except as docu Neurologic: Reports system reviewed and no additional complaints, except as documented Psychiatric: Psychiatric: Reports no additional psychiatric complaints Endocrine: Endocrine: Reports no additional endocrine complaints Hematologic/Lymphatic: Hematologic/Lymphatic: Reports no additional hematologic/lymphatic complaints Allergic/Immunologic: Allergic/Immunologic: Reports no additional allergic/immunologic complaints PMFSH Past Medical History Medical History Wheezing No active medical problems Surgical History Surgical History No history of previous surgery Social History Social History Smoking packs per day: 1 Smoking cigarettes per day: 20.0 Years smoked: 5 Smoking pack-years: 5.00 Smoking status: Current every day smoker Tobacco type: cigarettes Substance use type: painkillers Gender identity (if verbalized by the patient): Male Exam Const: General: healthy appearing Nutritional Appearance: well nourished Orientation/consciousness: patient oriented x3 HENMT: Head: normal to inspection Ears: external ears normal Face/Nose/Sinus: Normal external nose present Other: see skin exam Eyes: Conjunctivae: conjunctivae normal Pupils: Equal, round and reactive pupils present EOM: EOMs intact bilaterally Neck: Neck: normal visual inspection Chest: Chest palpation & inspection: normal inspection of the chest Resp: Effort & Inspection: normal respiratory effort and not labored Auscultation: clear to auscultation bilaterally and no crackles Cardio: Rate: regular rate Rhythm: regular rhythm Heart sounds: no murmurs Skin: General skin exam: normal color Rashes: rash noted Wounds: wound noted Other: midline lower lip has a red swelling with tenderness to palpation and small pustules appreciated and mild drainage; no definite abscess to be drained at this time Neuro: General: patient oriented x3 Cranial nerves: Yes Nystagmus not present Speech: normal speech Extrem: General: normal to inspection Psych: Mental Status: mental status grossly normal Affect: normal affect Attitude: cooperative Course Vital Signs Vital signs: Vital Signs Temperature 36.6 C 09/24/24 18:52 Pulse Rate 122 H 09/24/24 18:52 Respiratory Rate 16 09/24/24 18:52 Blood Pressure 130/83 09/24/24 18:52 Pulse Oximetry 96 09/24/24 18:52 Oxygen Delivery Room Air 09/24/24 18:52 Temperature 36.6 C 09/24/24 18:52 Pulse Rate 94 09/24/24 19:57 Respiratory Rate 16 09/24/24 19:57 Blood Pressure 121/76 09/24/24 19:57 Pulse Oximetry 97 09/24/24 19:57 Oxygen Delivery Room Air 09/24/24 19:57 MDM - Skin/Abscess/Foreign Bdy MDM Narrative Medical decision making narrative: patient is a 24-year-old male with a midline lower lip red swelling and infection of cellulitis. Clindamycin, prednisone and Valtrex. Discharge Plan Discharge Clinical Impression: Cellulitis of lip Patient Disposition: Home Condition: Stable Instructions: Antibiotic Form, Cellulitis (ED) Patient Language: Italian Prescriptions: New clindamycin HCl [Cleocin HCl] 300 mg capsule 300 mg PO TID 10 Days Qty: 30 0RF prednisone 20 mg tablet 20 mg PO DAILY 3 Days Qty: 3 0RF valacyclovir [Valtrex] 1 gram tablet 1,000 mg PO BID 7 Days Qty: 14 0RF No Action sulfamethoxazole-trimethoprim [Bactrim DS] 800-160 mg tablet 1 tablet PO Q12H Qty: 20 0RF mupirocin 2 % ointment 1 applic topical TID 7 Days Qty: 15 0RF Follow-up/Referrals: UNKNOWN,DOCTOR [Non-Staff] - Time of Disposition: 19:43
[2024-09-24] MEDS: CLINDAMYCIN HCL 150 MG CAP 300 MG PO (19:41)
[2024-09-24 19:57] VITALS: BP 121/76; PULSE 94; RESP 16; O2SAT 97
== END 2024-09-24 19:58 | disposition home or self-care (01) ==
PROVIDERS: Emergency Provider Emergency Medicine; Referring Provider Internal Medicine
DX: K13.0 Diseases of lips (principal); F17.210 Nicotine dependence, cigarettes, uncomplicated
CPT/HCPCS: 99283; A9270; J7512